=== PATIENT | female | born 1980 | race Caucasian/White ===

== ENCOUNTER 2025-06-26 15:50 | Outpatient (OUT) | payer OTHER, SELFPAY ==
--- NOTE | 2025-06-26 16:04 | US_ITS ---
The [address] [address] Patient Name: JUSTIN FAJARDO MRN: [id number] date: 1980 Sex: F Assigned Patient Location: US Current Patient Location: US Accession/Order Number: [id number] Exam Date: 06/26/2025 18:02 Report Date: 06/26/2025 18:04 At the request of: LEANNE BAUTISTA Procedure: US appendix Ultrasound appendix INDICATION: Right lower quadrant abdominal pain COMPARISON: None FINDINGS: Targeted images through the right lower quadrant obtained. The appendix is not visualized. No definite loculated collections. US/US appendix IMPRESSION: Nonvisualization appendix. Consider further evaluation as clinically warranted. Impression dictated by: Franklin Bishop M.D. 06/26/2025 6:04 PM Dictation Location: [place] [address] Electronically authenticated by: [id number] Y Date: 06/26/2025 18:04
--- NOTE | 2025-06-26 16:05 | US_ITS ---
The [address] [address] Patient Name: JUSTIN FAJARDO MRN: [id number] date: 1980 Sex: F Assigned Patient Location: US Current Patient Location: US Accession/Order Number: [id number] Exam Date: 06/26/2025 21:43 Report Date: 06/26/2025 21:49 At the request of: LEANNE BAUTISTA Procedure: US pelvis w/ transvaginal Pelvic ultrasound INDICATION: Right lower quadrant pain for 4 days, comparison: APPENDIX PARTIAL TODAY COMPARISON: None FINDINGS: Uterus absent. Right ovary 3.4 x 1.8 x 2.9 cm. Adjacent the right ovary there is a hypoechoic collection 2.9 x 2.8 x 2.4 cm in size, this could represent a ovarian cysts versus nonspecific fluid collection. The. Left ovary 2.4 x 1.2 x 1.1 cm in size. Symmetric vascular flow both ovaries. US/US pelvis w/ transvaginal IMPRESSION: Hysterectomy. Likely fluid collection adjacent the right ovary could represent a cyst but is not well characterized and due to lack of comparisons.. If warranted, consider cross-sectional imaging given the recent performed ultrasound to evaluate for appendicitis [any recent comparisons Impression dictated by: Franklin Bishop M.D. 06/26/2025 9:49 PM Dictation Location: [place] [address] Electronically authenticated by: [id number] Y Date: 06/26/2025 21:49
== END 2025-06-26 15:51 | disposition home or self-care (01) ==
PROVIDERS: PCP Family Medicine; Visit Provider Nurse Practitioner Family
DX: N89.8 Other specified noninflammatory disorders of vagina (principal); R10.31 Right lower quadrant pain; R10.829 Rebound abdominal tenderness, unspecified site
CPT/HCPCS: 76705; 76830; 76856

== ENCOUNTER 2025-08-12 16:27 | Outpatient (OUT) | payer OTHER, SELFPAY ==
--- NOTE | 2025-08-12 16:33 | XR_ITS ---
The [address] [address] Patient Name: JUSTIN FAJARDO MRN: [id number] date: 1980 Sex: F Assigned Patient Location: [facility] Current Patient Location: Accession/Order Number: [id number] Exam Date: 08/12/2025 16:35 Report Date: 08/13/2025 08:53 At the request of: LEANNE BAUTISTA Procedure: XR ankle LT min 3V LEFT ANKLE - 3 views CLINICAL DATA: Pain and swelling at the left ankle since injury 17 days ago. COMPARISON: None AP, lateral and oblique views were obtained. There is no evidence of fracture or dislocation. The talar dome is intact. There is minor soft tissue swelling. XR/XR ankle LT min 3V IMPRESSION: NO ACUTE BONY INJURY. Impression dictated by: Cara Jackson M.D. 08/13/2025 8:53 AM Dictation Location: [place] [address] Electronically authenticated by: [id number] Y Date: 08/13/2025 08:53
== END 2025-08-12 16:28 | disposition home or self-care (01) ==
LOC: RAD 16:29
PROVIDERS: PCP Family Medicine; Visit Provider Nurse Practitioner Family
DX: S93.402A Sprain of unspecified ligament of left ankle, initial encounter (principal)
CPT/HCPCS: 73610

== ENCOUNTER 2025-08-24 15:53 | Emergency (ER) | payer OTHER, SELFPAY ==
[2025-08-24 15:57] VITALS: BP 114/81; PULSE 83; TEMP 37.1; O2SAT 98; BMI 27.5
[2025-08-24] MEDS: DIPHTH,PERTUSS(ACELL),TET VAC 0.5 ML SYRINGE IM (16:38)
[2025-08-24] MEDS: LIDOCAINE HCL 1% 100 MG/10 ML MDV INJ (16:39)
--- NOTE | 2025-08-24 17:26 | ED.GENADUL1 ---
HPI HPI - General Adult General Chief complaint: Wound/Laceration Stated complaint: LACERATION L THUMB Time Seen by Provider: 08/24/25 16:05 Source: patient Mode of arrival: walk-in Limitations: no limitations History of Present Illness HPI narrative: Patient is a 44-year-old female who presents to the emergency department with complaints of laceration to the dorsal aspect of her left thumb around the MCP joint. 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 Patient is right-handed. She states that she washed out the wound with peroxide prior to arrival and was able to get the bleeding to stop. She is not up-to-date on her tetanus. She states she is unable to extend the distal portion of her thumb. Related Data Previous Rx's ?Medication ?Instructions ?Recorded cephalexin 500 mg capsule 500 mg PO BID 7 days #14 caps 08/24/25 Allergies Allergy/AdvReac Type Severity Reaction Status Date / Time No Known Drug Allergies Allergy Verified 08/24/25 16:02 Review of Systems ROS Status of ROS 10 or more systems reviewed and unremarkable except as noted in history and below PFSH PFSH Social History Little interest or pleasure in doing things: not at all Feeling down, depressed, or hopeless: not at all Exam Narrative Exam Narrative: General: No distress, age-appropriate Skin: Warm, dry, no pallor. No rash. There is approximately 1 cm laceration to the dorsum of the left thumb around the MCP joint. Head: Normocephalic, atraumatic. Neck: Supple, non-tender. Eye: Pupils are equal, round and EOMI. No scleral icterus. Ears, Nose, Mouth, and Throat: No nasal mucosal hypertrophy. Oral mucosa is moist, no posterior oropharynx erythema, uvula is mid-line Cardiovascular: Regular Rate and Rhythm without murmur, gallop or rub. Respiratory: No accessory muscle use or respiratory distress. Lungs are clear to auscultation, no wheezing, rales or rhonchi Chest Wall: no tenderness Back: No midline thoracic or lumbar vertebral tenderness. Musculoskeletal: Full ROM of all extremities, except extension at the DIP joint of the left thumb there is no active extension. There is full passive extension. Sensation with light touch is intact distally and there is less than 2-second capillary refill. Wound explored and there does appear to be and extensor tendon laceration. GI: Abdomen is soft, non-distended, non tender to palpation. No masses appreciated. No rebound, guarding, or rigidity noted. Neurological: A&O x4. No cranial nerve dysfunction observed. No truncal ataxia. Moves all extremities. Sensation intact. Psychiatric: Cooperative and interactive. Normal mood and affect. Constitutional Vital Signs, click to edit/add: Last Vital Signs Temp 98.7 F 08/24/25 15:57 Pulse 83 08/24/25 15:57 Resp 16 08/24/25 15:57 BP 114/81 08/24/25 15:57 Pulse Ox 98 08/24/25 15:57 O2 Del Method Room Air 08/24/25 15:57 Documenting provider has reviewed patient's vital signs: yes Course Vital Signs Vital signs: Vital Signs Temperature 98.7 F 08/24/25 15:57 Pulse Rate 83 08/24/25 15:57 Respiratory Rate 16 08/24/25 15:57 Blood Pressure 114/81 08/24/25 15:57 Pulse Oximetry 98 08/24/25 15:57 Oxygen Delivery Method Room Air 08/24/25 15:57 Temperature 98.7 F 08/24/25 15:57 Pulse Rate 83 08/24/25 15:57 Respiratory Rate 16 08/24/25 15:57 Blood Pressure 114/81 08/24/25 15:57 Pulse Oximetry 98 08/24/25 15:57 Oxygen Delivery Method Room Air 08/24/25 15:57 Medical Decision Making MDM Narrative Medical decision making narrative: This is a 44-year-old female that presented to the ER with complaints of laceration to the left thumb and inability to move the distal portion of her thumb after using a box truck owner operator to remove carpet from her house. Her tetanus is not up-to-date. On exam patient is in no distress, pain is controlled. Vitals are stable, patient is afebrile. Wound is hemostatic and approximately 1 cm on the dorsal portion of the left thumb around the MCP joint. Upon inspection and the wound the extensor tendon appears to be fully lacerated. Patient is unable to extend the DIP joint. Flexion and extension at the MCP joint is intact of the left thumb. There is less than 2-second capillary refill and sensation is intact distally. I did call and speak with Dr. Quinonez with orthopedics with concern for extensor pollicis longus laceration and plan will be to close wound loosely in the ER after irrigation and placed in splint. He would like patient to be n.p.o. on Tuesday night and call the office first thing Tuesday morning for possible surgery that day. I did place 2 sutures loosely in the patient's wound after irrigation. She was splinted using Ortho-Glass and and a Hakeem wrap to keep the thumb in extension. She can remove to gently cleanse the wound tomorrow. I did discharge her with Keflex and gave her an updated Tdap injection. Patient was neurovascularly intact after splint was placed and dried. Patient was discharged with antibiotics, wound care, and plan for close follow-up with orthopedics on Tuesday. Differential Diagnosis Differential Diagnosis: Laceration, extensor tendon laceration, infection Discharge Plan Discharge Chief Complaint: Wound/Laceration Clinical Impression: Laceration, Tendon laceration Patient Disposition: Home, Self-Care Time of Disposition Decision: 17:04 Condition: Good Mode of Transportation: Private Vehicle Prescriptions / Home Meds: New cephalexin 500 mg capsule 500 mg PO BID 7 Days Qty: 14 0RF Print Language: Swazi Instructions: Laceration (ED) Additional Instructions: You appear to have lacerated your extensor pollicis longus tendon of your left thumb. I have spoken with Dr. Cristiano Olguin who would like you to call his office on Tuesday at 8 AM to be seen on Tuesday. Schedule depending your appointment may be in [place] or [place]. We will tentatively plan for surgery on Tuesday and you should have nothing to eat or drink after midnight on Monday August 25, 2025. Wear your splint at all times until seen by orthopedics. You can remove your splint to check your wound tomorrow. Wash with regular soap and water. Do not soak or submerge the wound in water. Start taking the antibiotics ordered. Return to the emergency department with any concerns for infection or any new or worsening symptoms. Referrals: LEANNE BAUTISTA [Primary Care Provider, Unknown] - 1 week Procedures ED Laceration Laceration Laceration 1: Site: hand Side (if applicable): left Size (cm): 1 Description: linear Depth: simple, single layer Anesthetic used: lidocaine 1% Anesthesia technique: local infiltration Amount (ml): 1 Pre-repair: wound explored (Extensor tendon appears lacerated) and irrigated extensively Skin layer closed with: other (Ethilon) Size (cm): 5-0 Number of sutures: 2 Technique: simple, interrupted ED Ortho Splinting/Casting Orthopedic Splinting/Casting Injury #1: Side: left Splint type: Splint finger (Ortho-Glass used to splint thumb in extension) Upper extremity injury location: finger Upper extremity immobilizer: thumb spica and Hakeem wrap
== END 2025-08-24 17:27 | disposition home or self-care (01) ==
PROVIDERS: Emergency Provider Emergency Medicine; PCP Nurse Practitioner Family
DX: S66.222A Laceration of extensor muscle, fascia and tendon of left thumb at wrist and hand level, initial encounter (principal); W26.0XXA Contact with knife, initial encounter; Z23 Encounter for immunization
CPT/HCPCS: 12001; 29130; 90471; 90715; 99284